=== PATIENT | female | born 1970 | race Caucasian/White ===

== ENCOUNTER 2019-07-16 11:33 | Emergency (ER) | payer MEDICAID, SELFPAY ==
[2019-07-16] VITALS (7 sets, daily range): BP systolic 122–169; BP diastolic 79–118; PULSE 70–102; RESP 13–19; TEMP 36.1; O2SAT 95–99; BMI 22.5
--- NOTE | 2019-07-16 12:04 | EKG12_ITS ---
Test Reason : CP Blood Pressure : / mmHG Vent. Rate : 090 BPM Atrial Rate : 090 BPM P-R Int : 134 ms QRS Dur : 082 ms QT Int : 370 ms P-R-T Axes : 081 068 052 degrees QTc Int : 452 ms Normal sinus rhythm Normal ECG Confirmed by TARI ROOT, AUGUSTINE ([id number]), general expeditor CYNTHIA MANZO ([id number]) on 07/18/2019 12:35:52 PM Referred By: Confirmed By:CRISSY MARC MD
--- NOTE | 2019-07-16 12:04 | RAD_ITS ---
STUDY: X-RAY CHEST REASON FOR EXAM: Female, 49 years old. Chest pain. TECHNIQUE: Single AP portable view of the chest. COMPARISON: None. FINDINGS: EKG electrodes are seen. The lungs are clear and expanded. There is no demonstrated pleural abnormality. Normal size heart. Normal mediastinum and sharita. Normal visualized pulmonary arteries. Normal visualized aortic arch and descending thoracic aorta. Normal visualized thoracic spine. Normal visualized ribs, clavicles, and shoulders. There is no demonstrated abnormality of the visualized soft tissue structures of the upper abdomen. RAD/Chest 1 View (Portable) IMPRESSION: Normal x-ray examination of the chest. Electronically Signed: Anastacio Guzmán, at 12:32 EST , Service support ,
--- NOTE | 2019-07-16 12:13 | CT_ITS ---
STUDY: CTA CHEST REASON FOR EXAM: Female, 49 years old. Shortness of breath/chest pain radiating towards the left upper extremity. RADIATION DOSAGE (If Supplied By Facility): CTDIvol = ( 9.01 ) mGy, DLP = ( 295.40 ) mGycm TECHNIQUE: The examination was performed with the intravenous administration of IV Isovue 370 75ml. Post-processing of the angiographic images was performed, with multiplanar reformation and 3D reconstruction. Individualized dose optimization techniques were used for this CT. COMPARISON: None. FINDINGS: Normal enhancement of the main pulmonary artery and right and left pulmonary arteries. Normal enhancement of the bilateral peripheral pulmonary arteries. There is no demonstrated pulmonary embolism. Normal thoracic aorta and visualized great vessels. There is no demonstrated aortic dissection. Normal heart and pericardium. Normal mediastinum. Normal hilar regions. Normal visualized trachea and bronchi. The lungs are well expanded. Bullous changes seen in the right upper lobe. Normal pleura. Normal chest wall structures. There are mild degenerative changes of thoracic spine. Small hiatal hernia. CT/CTA Chest W/WO Contrast IMPRESSION: Normal CTA chest examination, without a demonstrated pulmonary embolism or arterial dissection. Bolus changes in the right upper lobe. Electronically Signed: Anastacio Guzmán, at 13:42 EST , Service support ,
--- NOTE | 2019-07-16 12:17 | NURSING ---
NO OLD EKGS
[2019-07-16] MEDS: Aspirin 81 MG TAB.CHEW 324 MG PO (12:25)
[2019-07-16] MEDS: 0.9% Normal Saline 1,000 ML 999 ML IV (12:25)
[2019-07-16 12:37] LABS: Absolute Lymphocyte Count 2.36 X10^3/uL (0.83-4.51); Absolute Neutrophil Count 4.9 X10^3/uL (2.0-7.7); Basophil# 0.03 X10^3/uL; Basophil% 0.4 % (0-1); Eosinophil# 0.03 X10^3/uL; Eosinophils% 0.4 % (0-5); Hematocrit 42.6 % (37-47); Hemoglobin 14.4 g/dL (12.0-15.0); Lymphocyte # 2.36 X10^3/ul (4.0); Lymphocyte % 29.9 % (19-41); Mean Corp Hgb Conc 33.8 g/dL (32-36); Mean Corpuscular Hgb 31.8 pg (27.0-32.0); Mean Platelet Vol. 9.8 fl (6.2-12.0); Monocyte# 0.56 X10^3/uL; Monocyte% 7.1 % (0-10); NRBC Flagged by Analyzer 0 % (0-5); Neutrophil % 61.9 % (47-70); Platelet Count 317 K/mm3 (150-450); RBC Distribution Width CV 13.2 % (11.6-14.6); RBC Distribution Width SD 45.2 fl (35.1-43.9); Red Blood Count 4.53 M/mm3 (4.2-5.4); White Blood Count 7.9 K/mm3 (4.4-11.0)
[2019-07-16 12:43] LABS: D-Dimer Quantitative (DVT/PE) < 0.27 FEU/ug/m (0.27-0.49)
[2019-07-16 12:44] LABS: Anion Gap 8 (5-15); BUN 19 mg/dL (7-18); BUN/Creat Ratio 33.6 RATIO (10-20); Calcium,Total 8.6 mg/dL (8.5-10.1); Chloride 109 mmol/L (98-107); Creatinine, Serum 0.56 mg/dL (0.55-1.02); EST Glomerular Filtration Rate 121 mL/min (>60); Est Glom Filt Rate - Afr Amer 146 mL/min (>60); Estimated Creatinine Clearance 104.94 ml/min; Glucose 95 mg/dL (74-106); Potassium 3.7 mmol/L (3.5-5.1); Sodium Level 139 mmol/L (136-145)
[2019-07-16] MEDS: morphine 8 MG/ML Syringe 6 MG IV (12:51)
[2019-07-16] MEDS: Ondansetron 4 MG/2 ML Vial IV (12:52)
--- NOTE | 2019-07-16 16:58 | ED.DCSUM_ITS ---
- ER Visit Summary Date of Service: 07/16/19 Chief Complaint: Left-sided chest pain History of Present Illness: The patient is a 49 F history of hypertension. No cardiac history no history of DVT or PE. Recent travel to and from [place]. It was more than [address]. Patient states that yesterday she had onset of left-sided chest pain. Associated dyspnea. Nausea. Not associated with exertion. It was pleuritic in nature. No hemoptysis. No leg pain or swelling. Prior to that she has not had recent chest pain nor any recent exertional dyspnea or exertional shortness of breath. There is no significant family history of cardiac disease or blood clots. Physical Examination: Middle-aged female complaining of chest pain. Vital signs are stable afebrile. Initial blood pressure 169 / 118. Pulse ox 99% on room air no signs of hypoxia. H EENT exam unremarkable. Neck nontender no lymphadenopathy. No JVD. Lungs clear to auscultation bilaterally. Heart regular rhythm no murmur. Chest wall is reproducible left-sided chest wall and peristernal discomfort. There is no ecchymosis or bruising. No subcu air crepitance. She had no chest wall trauma. Abdomen is soft nontender normal bowel sounds no peritoneal signs. Extremities moves all 4. Calves are no ntender without edema or cords. Equal symmetrical radial pulses. Back nontender. Neurologically she is awake alert with no focal motor deficits. Test Results: EKG shows a sinus rhythm rate of 90 with no acute signs of DE or ischemia unchanged from prior EKG from earlier this year. Chest x-ray portable one view shows no acute abnormality. Normal cardiac silhouette and mediastinum. CBC normal. Chemistries normal. Troponin normal. D-dimer normal. In light that she is had recent travel and this chest pain I did elect to still get a CTA looking for both dissection and possible PE but felt PE was less likely now due to the negative d-dimer. CTA of the chest read by the radiologist is read as normal. No signs of PE or dissection. I did review the films myself. Emergency Department Course and Treatment: Patient's history and exam is concerning for left-sided chest pain but it is reproducible is very well may be chest wall pain. Should be worked up for possible cardiac etiology but she is had no symptoms until yesterday. PE is a larger concern due to her recent travel and the sudden onset of the discomfort. She was treated with IV morphine for pain and also p.o. aspirin. She also received Zofran to prevent nausea due to the morphine. Exam she is doing well. She is feeling better. She and I went over all of her test results. This will be treated this chest wall pain with a negative work- up. Treatment Plan: [place] for pain. Motrin. Ice to her chest wall. Follow-up if not improving return if worse. Disposition: Discharge Impression: Left chest wall pain This note was generated with [employer] dictation software. It may contain incorrect words, spelling, and punctuation that were not noted in review of the chart prior to signing ED Disposition - Plan for ED Patient: Disposition: Home or Assisted Living Instructions: CHEST WALL PAIN, Costochondritis Prescriptions: Hydrocodone/Acetaminophen [[place] 5-325 Tablet] 1 ea PO 4X/DAY PRN PRN #14 tab PRN Reason: Pain Or Fever Prescription Printed Referrals: Kenny Hidalgo NP-C [Primary Care Provider] - 3-5 Days if not improving Additional Instructions: Ice to your chest wall to decrease inflammation. Motrin for pain and inflammation. [place] for more severe pain. Follow-up if not improving or return to ER feeling worse.
--- NOTE | 2019-07-16 17:09 | DCINST.ED_ITS ---
ED Disposition - Plan for ED Patient: Disposition: Home or Assisted Living Instructions: CHEST WALL PAIN, Costochondritis Prescriptions: Hydrocodone/Acetaminophen [[place] 5-325 Tablet] 1 ea PO 4X/DAY PRN PRN #14 tab PRN Reason: Pain Or Fever Prescription Printed Referrals: Kenny Hidalgo NP-C [Primary Care Provider] - 3-5 Days if not improving Additional Instructions: Ice to your chest wall to decrease inflammation. Motrin for pain and inflammation. [place] for more severe pain. Follow-up if not improving or return to ER feeling worse.
== END 2019-07-16 17:23 | disposition home or self-care (01) ==
PROVIDERS: Emergency Provider Emergency Medicine; Family Provider Nurse Practitioner Family; PCP Nurse Practitioner Family
DX: R07.89 Other chest pain (principal); I10 Essential (primary) hypertension; F17.200 Nicotine dependence, unspecified, uncomplicated; Z79.899 Other long term (current) drug therapy
CPT/HCPCS: 71045; 71275; 80048; 84484; 85025; 85379; 93005; 96361; 96374; 96375; 99285; J7030; Q9967; A4216; J2405

== ENCOUNTER → 2019-10-30 10:56 | Outpatient (CLI) | payer MEDICAID, SELFPAY ==
[2019-07-16 11:33] VITALS: BMI 22.5
--- NOTE | 2019-10-30 | BRBX_PTH ---
PATIENT: OFELIA RAUSCH LOC: [facility] U#:[id number] AGE/SX: 55/F ROOM: RE10/30/[address]: Dr. Alexandria Melgar MD : 1970 BED: DIS: SPEC #: [id number] RECD: 10/30/19 12:57 STATUS: SRIDEVI CRYSTAL #: [id number] FABIOLA: 10/30/19 00:[address]: Alexandria Melgar DEPT: SURGICAL PATHOLOGY RECD BY: Az Shin ENTERED: 10/30/19 12:57 SP TYPE: BREAST BX OT DR: Kenny Hidalgo, DENTAL PATIENT COORDINATOR-Carmen Tissues: Right breast, NOS Procedures: Surgery Specimen Level IV HEADER OPERATION: Right breast stereotactic biopsy PRE-OP DIAGNOSIS: Fine heterogenous calcifications right breast upper inner aspect middle depth TISSUE SUBMITTED: Right breast tissue ISCHEMIC TIME: 1 minute FIXATION TIME: 8 hours MICROSCOPIC DIAGNOSIS Right breast tissue, heterogenous calcifications upper inner aspect middle depth, stereotactic core biopsy: Fibrocystic changes and focal adenosis. Negative for atypia or malignancy. Frequent microcalcifications. ION:lu 10/31/19 COMMENT Correlation with clinical, radiologic findings and appropriate follow up are necessary. MICROSCOPIC DESCRIPTION Slides are reviewed. GROSS DESCRIPTION Received is one container labeled with the patient's name and not further designated. The specimen consists of multiple elongated fragments of treviño-yellow fibroadipose tissue that in aggregate measure 6 x 3 x 0.3 cm. The entire specimen is submitted in three cassettes. / ION:lu 10/30/19 TC:5 CPT: 52404
--- NOTE | 2019-10-30 12:01 | NURSING ---
Held pressure on pt right breast until the bleeding stopped, and assisted with dressing the wound.
--- NOTE | 2019-10-30 12:03 | PCM.OPRPT ---
Report of Operation Date of Procedure: 10/30/19 Pre-Operative Diagnosis: abnormal calcifications on right breast mammograms Post-Operative Diagnosis: same Surgery/Procedure Performed:: right breast stereotactic biopsy Description of Surgical Findings:: abnormal calcifications seen in specimen of right breast tissue Type of Anesthesia:: Local MAC Anesthesiologist: Aayush Pimentel Specimen's removed: right breast tissue Estimated Blood Loss (mL): minimal Fluids Replaced: none Description of Procedure: After informed consent was given, the patient was brought into the breast biopsy suite. Appropriate time out protocol was followed. She was then placed in the prone position on the stereotactic biopsy table. The patient?s right breast was then placed at the opening at the head of the table. A emergency department coordinator compression mammogram was then obtained in the CC view. The suspicious radiological lesion was then identified. Stereo pictures of the lesion were then taken for XYZ coordinates. The Mammotome biopsy stylus was then positioned where it would be entering into the patient?s breast. The skin at this site was then cleansed with a surgical skin preparation. The skin and subcutaneous tissues at this site were then infiltrated with 1% xylocaine. A small skin incision was made with an 11 blade scalpel. The biopsy stylus was then positioned into the patient?s breast at the proper coordinates of depth. Using the Mammotome vacuum-assist device, several core samples of breast tissue were obtained. A specimen mammogram was the obtained and revealed that the calcifications were within the specimen. A hemostatic marker clip was then placed into the biopsy cavity and a emergency department coordinator film revealed that it was properly deployed. The patient was then placed in the supine position and pressure was applied to the breast until no active bleeding was noted. Steristrips were applied to reapproximate the skin. A unilateral mammogram in the CC and MLO view were then taken which revealed that the marker clip was in the same area as the previous suspicious lesion. The patient tolerated the procedure. Of note, the patient was very anxious and tearful during the entire procedure, however, she was able to calm down with distraction conversation. - Complications none noted
== END ==
PROVIDERS: PCP Nurse Practitioner Family; Referring Provider Surgery; Visit Provider Surgery
DX: R92.1 Mammographic calcification found on diagnostic imaging of breast (principal); I10 Essential (primary) hypertension; Z79.899 Other long term (current) drug therapy; F17.210 Nicotine dependence, cigarettes, uncomplicated
CPT/HCPCS: 19081; 88305; J7050; A4648

== ENCOUNTER 2019-12-12 23:30 | Emergency (ER) | payer MEDICAID, SELFPAY ==
[2019-07-16 11:33] VITALS: BMI 22.5
[2019-12-12 23:31] VITALS: BP 164/114; PULSE 107; RESP 18; TEMP 36.4; O2SAT 97; BMI 21.9
--- NOTE | 2019-12-12 23:38 | ED.VIS.UPPEX ---
History of Present Illness Chief Complaint: Laceration Informant: Patient Occurred: Today - JPTA Mechanism/Context: Injury - accentally cut while using a mandolin to slice potatoes Context: Sudden Onset Timing: Continuous Quality of Pain: - - sore Location: R hand multiple fingers Current Severity: Moderate Maximum Severity: Moderate Worsened by: palpation Relieved by: leaving alone Associated Symptoms: Negative for: Parasthesia, Weakness, Loss of Funtion Narrative: [id number] female states she was drinking some alcohol tonight and then with a slice of potatoes with a mandolin and accidentally cut her right hand in multiple areas. She is having trouble stopping the bleeding. She denies any other symptoms or recent illnesses. She is a smoker, her last tetanus was about 3 years ago. Tetanus Immunization: <5 years Recent Illness/Hospitalization: No - Past Medical History (1) Hypertension Status: Chronic Past Medical History - Allergies and Home Meds Allergies/Adverse Reactions: Allergies No Known Allergies Allergy (Verified 12/12/19 23:36) Primary Care Physician: Kenny Hidalgo NP-C [Primary Care Provider] - 10 Day for suture removal Smoking Status: Current every day smoker Review of Systems General: Denies: Chills, Fever, Sweats Musculoskeletal: Reports: Extremity Pain Skin: Reports: Wounds. Denies: Abscess Neurological: Denies: Headache, Weakness, Numbness Physical Exam Vital Signs/Narrative: Vital Signs Temp Pulse Resp BP Pulse Ox 12/12/19 23:31 97.6 F L 107 H 18 164/114 H 97 General: Well nourished, Well developed, - - No distress. Tearful. Head: Normocephalic, Atraumatic Extremeties: Full range of motion throughout all joints of all digits of the right hand. The other 3 extremities are atraumatic. Skin: Normal color, No rash, Trauma - Skin avulsions to the radial aspect of the right thumb distal phalanx and the ulnar aspect of the right small finger middle phalanx without repairable laceration. There is a linear repairable laceration to the ulnar aspect of the right ring finger distal phalanx. No nail or nailbed involvement in any of these injuries. No other injuries. Neurological: Alert, Oriented x3, Cranial nerves II-XII grossly intact, Normal Strength, Normal Sensation, Normal Gait Psychological: Tearful Diagnostic/Tx/Re-eval - Medical Decision Making All 3 of this patient's superficial skin wounds of the right hand are oozing venous blood and controlled with pressure. She is on no anticoagulants or antiplatelet medications. The skin avulsions are not able to be repaired, they will have to granulate in with time. We cleansed them and dressed them with Surgifoam, bacitracin, and a gauze dressing. All of the wounds were pretreated with let for pain control and to assist with hemostasis, which was accomplished. The laceration was repaired using Vicryl Rapide, so they can dissolve. She was given appropriate discharge instructions for infection prevention and reasons to return. Procedures - Lacerations right ring finger Length: 1 cm Depth: Sub Q Shape: L-shaped Prep: Sterile Conditions, Chlorhexadine Laceration repair: Irrigated, Lidocaine with epi - LET topically only, Skin sutures Number of Sutures/[place]: 2 Suture Information: Vicryl - Rapide absorbable skin suture, 5-0 ED Disposition - Plan for ED Patient: Disposition: Home or Assisted Living Diagnosis: Laceration of right ring finger w/o foreign body w/o damage to nail, Avulsion of skin of finger, Avulsion of skin of right thumb Instructions: ED Laceration Hand, ED AVULSION LACERATION Referrals: Kenny Hidalgo, PRESLEY-C [Primary Care Provider] - As Needed
[2019-12-12] MEDS: Lidocaine/Epi/Tetracaine 50 ML 1 APPLIC TOPICAL (23:55)
[2019-12-13 01:06] VITALS: BP 155/90; PULSE 80; RESP 16; O2SAT 98
== END 2019-12-13 01:07 | disposition home or self-care (01) ==
LOC: ED 12-13 00:05
PROVIDERS: Emergency Provider Emergency Medicine; PCP Nurse Practitioner Family
DX: S61.214A Laceration without foreign body of right ring finger without damage to nail, initial encounter (principal); F17.200 Nicotine dependence, unspecified, uncomplicated; I10 Essential (primary) hypertension; W27.4XXA Contact with kitchen utensil, initial encounter
CPT/HCPCS: 12001; 99283

== ENCOUNTER 2021-02-20 17:33 | Emergency (ER) | payer MEDICAID, SELFPAY ==
[2021-02-20 17:33] VITALS: BP 160/91; PULSE 103; RESP 16; TEMP 36.4; O2SAT 96; BMI 21.2
--- NOTE | 2021-02-20 17:55 | EX.ED.DYSGE1 ---
HPI History of Present Illness Chief Complaint: Lower Extremity Injury Informant: patient Narrative Narrative: 51-year-old female states that earlier yesterday morning she awoke from sleep with pain in her left calf. She states she was having a charley horse. She states it lasted 5 minutes and has been incredibly sore since. She states is very tender to palpation. She states that she is worked 2 days on it now and it is very painful. She has tomorrow off and is hoping to rest it. She talked to her son and they were concerned that it may be a DVT. She denies any swelling of the leg. No prior history of DVT. No DVT PE risk factors. [facility] Medical History (Updated 02/20/21 @ 17:[address] Javi Cabrera DO) Hypertension Home Medications losartan-hydrochlorothiazide 1 ea PO DAILY 07/16/19 [History Last Taken Unknown] hydrocodone-acetaminophen 1 tab PO Q6H PRN PRN 3 Days #12 tablet 02/20/21 [Rx Last Taken Unknown] Allergy/AdvReac Type Severity Reaction Status Date / Time Unable to Assess Allergy Verified 02/20/21 17:36 Social History (Updated 02/20/21 @ 17:[address] Javi Cabrera DO) Smoking Status: Current every day smoker substance use type: does not use ROS ROS ED Constitutional Constitutional ED: Denies chills or weight loss Eyes Eyes: Denies change in vision or diplopia ENT ENT ED: Denies ear pain, rhinorrhea or sore throat Cardiovascular Cardiovascular: Denies chest pain, orthopnea, palpitations or racing heartbeat Respiratory/Chest Respiratory/Chest: Denies cough, dyspnea or orthopnea Gastrointestinal Gastrointestinal: Denies abdominal pain, diarrhea, nausea or vomiting Genitourinary Genitourinary ED: Denies dysuria, hematuria or urinary frequency Musculoskeletal Musculoskeletal: Reports other Details: See history of present illness ; Denies arthralgias or myalgias Integumentary Denies abscess or rash Neurologic Neurologic: Denies headache(s) or weakness Psychiatric Psychiatric: Denies anxiety, depression, suicidal ideation or suicidal thoughts Endocrine Endocrinology: Denies polydipsia, polyphagia or polyuria Allergic/Immunologic Allergic/Immunologic ED: Denies mouth swelling, tongue swelling or urticaria EXAM Physical Exam Const Vital Signs: 02/20/21 17:33 Temperature 97.5 F L Temperature Source Temporal Pulse Rate 103 H Respiratory Rate 16 Blood Pressure 160/91 H Blood Pressure Mean 114 Pulse Ox 96 Oxygen Delivery Method Room Air Positive well nourished and well developed General Appearance ED: well developed HEENT Reports normocephalic, head/scalp atraumatic and moist mucous membranes Eyes PERRL and EOMs intact bilaterally Neck no lymphadenopathy, supple and no JVD Resp normal respiratory effort and clear to auscultation bilaterally Cardio regular rate, regular rhythm and no murmurs GI normal to inspection, nondistended, normoactive bowel sounds and non-tender Palpation: soft Back/Spine no CVA tenderness and normal ROM Extremity Extremity Narrative: The left calf is tender to palpation. There is no swelling from side to side. There are no palpable cords. Neurovascular intact. General Extremety ED: Negative for edema General Extremity: Negative for edema Neuro oriented x3 and CN's II-XII intact bilaterally Sensorium / Orientation: alert Motor Exam: strength 5/5 throughout Psych mental status grossly normal Mood & Affect: Negative for depressed or tearful Skin no rashes or lesions noted and no wounds MDM MDM MDM Narrative Medical decision making narrative: I think this is most likely a muscle strain due to the muscle spasm. I do not have ultrasound here today to do a duplex. We can bring her back tomorrow. I think she is low risk for having a DVT and feel that the risk outweigh the benefits of anticoagulation tonight. Discharge Plan Triage Chief Complaint: Lower Extremity Injury ED Provider: Javi Cabrera Dx/Rx/DC Orders Clinical Impression: Strain of left calf muscle Instructions: ED Muscle Strain, Extremity Prescriptions: New hydrocodone-acetaminophen [hydrocodone-acetaminophen] 1 TABLET tablet 1 tab PO Q6H PRN PRN (Reason: Pain) 3 Days Qty: 12 RF: 0 No Action losartan-hydrochlorothiazide 1 EACH tablet 1 ea PO DAILY RF: 0 Other Ambulatory Orders: Venous Duplex US, Unilateral (Routine) Facility: [facility] - Location: [facility] Ordered By: Dr. Javi Cabrera Primary Care Provider: Kenny Hidalgo NP Referrals: Kenny Hidalgo NP, [employer]CTOR-C [Primary Care Provider] - As Needed Disposition Disposition: Home, Self Care
== END 2021-02-20 18:14 | disposition home or self-care (01) ==
LOC: ED 17:56
PROVIDERS: Emergency Provider Emergency Medicine; PCP Nurse Practitioner Family
DX: S86.912A Strain of unspecified muscle(s) and tendon(s) at lower leg level, left leg, initial encounter (principal); F17.200 Nicotine dependence, unspecified, uncomplicated; X58.XXXA Exposure to other specified factors, initial encounter
CPT/HCPCS: 99281; 99282

== ENCOUNTER → 2021-02-21 09:20 | Outpatient (CLI) | payer MEDICAID, SELFPAY ==
[2021-02-20 17:33] VITALS: BMI 21.2
--- NOTE | 2021-02-21 09:22 | VDLE_ITS ---
Reason For Study: PAIN RIGHT LEFT CFV is compressible, spontaneous, phasic, GSV is normal. competent and demonstrates normal CFV is compressible, spontaneous, phasic, augmentation. competent, and demonstrates normal Procedure augmentation. Exam performed in department. FV is compressible, spontaneous, phasic, A preliminary report was called and/or faxed competent and demonstrates normal to ED. augmentation. POP V is compressible, spontaneous, phasic, competent and demonstrates normal augmentation. T/P Trunk is compressible. PTV is compressible. LT PerV is compressible. VL/Venous Duplex US, Unilateral Interpretation Summary Deep veins of the left lower extremity are patent and compressible segmentally. There is no evidence of left lower extremity deep vein thrombosis. Valvular competence appears intac t within the proximal deep venous system on the left . The left great saphenous vein appears patent a nd compressible segmentally. Ordering Physician: Javi Cabrera Referring Physician: ELENA GARCIA Performed By: Shahida Dow, JEFF, RVT
== END ==
PROVIDERS: PCP Nurse Practitioner Family; Referring Provider Emergency Medicine; Visit Provider Emergency Medicine
DX: M79.605 Pain in left leg (principal)
CPT/HCPCS: 93971

== ENCOUNTER 2021-11-04 10:43 | Emergency (ER) | payer MEDICAID, SELFPAY ==
[2021-11-04 10:43] VITALS: BP 133/95; PULSE 101; RESP 16; TEMP 36.1; O2SAT 99; BMI 20.5
--- NOTE | 2021-11-04 11:10 | VDLE_ITS ---
Reason For Study: Pain Procedure LEFT This is a venous duplex using B-mode, color GSV is normal. flow and spectral Doppler. CFV is compressible, spontaneous, phasic, Exam performed in department. competent, and demonstrates normal A preliminary report was called and/or faxed augmentation. to ED. FV is compressible, spontaneous, phasic, competent and demonstrates normal augmentation. POP V is compressible, spontaneous, phasic, competent and demonstrates normal augmentation. T/P Trunk is compressible. PTV is compressible. LT PerV is compressible. VL/Venous Duplex US, Unilateral Interpretation Summary There is no evidence of left lower extremity deep vein thrombosis. Left great s aphenous vein appears patent and compressible segmentally. Ordering Physician: Mohan See Referring Physician: Kenny Hidalgo Performed By: Deya Jones RVT
--- NOTE | 2021-11-04 11:11 | EDS_ITS ---
HPI History of Present Illness Chief Complaint: Other, Pain/Inj Informant: patient Onset/Context/Timing Onset: Days (2-3) Context: - (Awoke with symptoms) Timing: Continuous Quality of Pain: - (Charley horse) Location: Left posterior leg and posterior knee Current Severity: Moderate Maximum Severity: Severe Worsened by: Walking, plantar flexing foot Relieved by: Remaining still and stretching the calf Associated Symptoms Associated Symptoms: Negative for Parasthesia, Weakness and Loss of Funtion Narrative Narrative: Patient states she is on her feet all day and this is been really bothering her. She woke up with the discomfort. She denies any injury or known overuse other than just walking a lot every day for work. She states she has b een eating spinach and trying to eat well, but she feels like she has a charley horse in her left leg and she is concerned it could be a blood clot. She denies any long travel recently or immobilization, hospitalization, or recent surgery. No history of blood clots. She takes no aspirin or anticoagulants or other antiplatelets. She takes medication for blood pressure and nothing else. She is a smoker. She denies any chest pain, shortness of breath, palpitations, syncope, or right lower extremity or other muscle pains. [facility] Medical History (Updated 11/04/21 @ 13:[address] Mohan See MD) Hypertension Home Medications losartan-hydrochlorothiazide 1 ea PO DAILY 07/16/19 [History Last Taken Unknown] hydrocodone-acetaminophen 1 tab PO Q6H PRN PRN 3 Days #12 tablet 02/20/21 [Rx Last Taken Unknown] Allergy/AdvReac Type Severity Reaction Status Date / Time No Known Allergies Allergy Verified 11/04/21 10:45 Social History (Updated 02/20/21 @ 17:[address] Javi Cabrera, ) Smoking Status: Current every day smoker tobacco type: cigarettes substance use type: does not use ROS ROS ED Constitutional Constitutional ED: Denies chills or fever(s) Cardiovascular Cardiovascular: Denies chest pain, dyspnea or pedal edema Respiratory/Chest Respiratory/Chest: Denies dyspnea or dyspnea on exertion Musculoskeletal Musculoskeletal: Reports extremity pain; Denies neck pain Integumentary Denies Abrasions, rash or wounds Neurologic Neurologic: Reports paresthesias LLE (in toes occasionally); Denies weakness EXAM Physical Exam Const Vital Signs: 11/04/21 10:43 11/04/21 11:24 Temperature 96.9 F L Temperature Source Temporal Pulse Rate 101 H Respiratory Rate 16 Respiratory Pattern Normal Blood Pressure 133/95 H Blood Pressure Mean 107 Pulse Ox 99 Oxygen Delivery Method Room Air Positive well nourished and well developed General Appearance ED: well developed and NAD Neck full ROM and supple Resp normal respiratory effort Back/Spine normal ROM and normal to inspection Extremity normal to inspection, full ROM and no pedal edema Extremity Narrative: Tender in left calf and popliteal fossa without any palpable abnormality. No palpable cords. No edema. No skin abnormality. Strong 2+ posterior tibial pulses bilaterally and symmetrically. Negative Homans. Patient has more pain when she plantar flexes and uses her gastroc muscle. Neuro oriented x3, no focal motor deficits and no sensory deficits noted Sensorium / Orientation: alert Psych mental status grossly normal and thought process normal Skin no wounds Rashes: no rashes MDM MDM MDM Narrative Medical decision making narrative: Patient was given ibuprofen for what I think is muscular pain, but I think it is completely reasonable to get an ultrasound of her left lower extremity which was done. Was very busy in emergency department, and there is no preliminary result given to us. I told the patient several times that it was busy and please to be patient, I was actively watching for the results, which as of this dictation came back 3 minutes ago, and 15 minutes ago, the patient eloped. Lab Data Attestation: I reviewed the patient's lab results. Labs: Laboratory Results - last 24 hr 11/04/21 11:20 Sodium 135 L Potassium 4.0 Chloride 102 Carbon Dioxide 29.0 Anion Gap 4 L BUN 21 H Creatinine 0.75 Estim Creat Clear Calc 76.25 Est GFR (MDRD) Af Amer 104 Est GFR (MDRD) Non-Af 86 BUN/Creatinine Ratio 28.0 H Glucose 113 H Calcium 8.4 L Radiography Diagnostic Testing: Clinical Impression(s) from Imaging Studies Venous Doppler Study 11/04/21 11:10 Interpretation Summary There is no evidence of left lower extremity deep vein thrombosis. Left great saphenous vein appears patent and compressible segmentally. Ordering Physician: Mohan See Referring Physician: Kenny Hidalgo Performed By: Deya Jones RVT Discharge Plan Triage Chief Complaint: Other, Pain/Inj ED Provider: Mohan See Dx/Rx/DC Orders Clinical Impression: Strain of left calf muscle Prescriptions: No Action losartan-hydrochlorothiazide 1 EACH tablet 1 ea PO DAILY RF: 0 hydrocodone-acetaminophen [hydrocodone-acetaminophen] 1 TABLET tablet 1 tab PO Q6H PRN PRN (Reason: Pain) 3 Days Qty: 12 RF: 0 Primary Care Provider: Kenny Hidalgo NP Referrals: Kenny Hidalgo PROFILING MACHINE SETUP OPERATOR, PROFILING MACHINE SETUP OPERATOR-C [Primary Care Provider] - Disposition Disposition: Elopement Discharge Date/Time: 11/04/21 13:23
[2021-11-04] MEDS: Ibuprofen 600 MG Tablet PO (11:34)
[2021-11-04 11:38] LABS: Anion Gap 4 (5-15); BUN 21 mg/dL (7-18); Calcium,Total 8.4 mg/dL (8.5-10.1); Chloride 102 mmol/L (98-107); Creatinine, Serum 0.75 mg/dL (0.55-1.02); EST Glomerular Filtration Rate 86 mL/min (>60); Est Glom Filt Rate - Afr Amer 104 mL/min (>60); Estimated Creatinine Clearance 76.25 ml/min; Glucose 113 mg/dL (74-106); Sodium Level 135 mmol/L (136-145)
--- NOTE | 2021-11-04 13:23 | ED.RN ---
PTMariajose JURADO, PER DR. FOX.
== END 2021-11-04 13:23 | disposition left against medical advice (07) ==
PROVIDERS: Emergency Provider Emergency Medicine; PCP Nurse Practitioner Family; Visit Provider Emergency Medicine
DX: S86.112A Strain of other muscle(s) and tendon(s) of posterior muscle group at lower leg level, left leg, initial encounter (principal); F17.210 Nicotine dependence, cigarettes, uncomplicated; X58.XXXA Exposure to other specified factors, initial encounter
CPT/HCPCS: 80048; 93971; 99282